=== PATIENT | male | born 1960 | race African-American/Black ===

== ENCOUNTER 2018-02-17 11:13 | Emergency (ER) | payer MEDICAID ==
[~2018-02-17] VITALS: Ht 175.3 cm; Wt 61.0 kg
[~2018-02-17 11:13] MED LIST: HYDR-519; METH500T6
[2018-02-17 11:25] VITALS: BP 100/71
== END 2018-02-17 13:30 | disposition left against medical advice (07) ==
LOC: ER 11:13
DX: R04.2 Hemoptysis (principal); F17.200 Nicotine dependence, unspecified, uncomplicated; Z86.11 Personal history of tuberculosis
CPT/HCPCS: 99281

== ENCOUNTER 2019-09-07 09:30 | Emergency (ER) | payer MEDICAID ==
[~2019-09-07] VITALS: Ht 172.7 cm; Wt 55.0 kg
[2019-09-07 09:45] VITALS: BP 117/79
[2019-09-07] MEDS ORDERED: KETOROLAC 60MG/2ML VIAL IM ONE (11:00)
[2019-09-07] MEDS ORDERED: DIAZEPAM 5 MG TABLET PO ONE (11:00)
== END 2019-09-07 12:23 | disposition home or self-care (01) ==
LOC: ER 09:52
DX: M54.5 Low back pain (principal); I10 Essential (primary) hypertension; Z79.899 Other long term (current) drug therapy
CPT/HCPCS: 72100; 72125; 96372; 99284; J1885

== ENCOUNTER 2023-04-01 12:24 | Emergency (ER) | payer MEDICAID ==
[~2023-04-01] VITALS: Ht 177.8 cm; Wt 61.0 kg
[~2023-04-01 12:24] MED LIST changes: +METH-773; -METH500T6
[2023-04-01 12:56] VITALS: BP 111/73; PULSE 78; RESP 16; TEMP 98.4; O2SAT 100
[2023-04-01] MEDS ORDERED: NAPR-681 PO (13:22)
[2023-04-01] MEDS ORDERED: TRAM50TA3 MT (13:22)
== END 2023-04-01 14:04 | disposition home or self-care (01) ==
LOC: ER 12:24
DX: S39.012A Strain of muscle, fascia and tendon of lower back, initial encounter (principal); V49.40XA Driver injured in collision with unspecified motor vehicles in traffic accident, initial encounter; Y93.89 Activity, other specified; Y92.89 Other specified places as the place of occurrence of the external cause; Y99.8 Other external cause status
CPT/HCPCS: 99283

== ENCOUNTER 2024-07-15 13:06 | Emergency (ER) | payer MEDICARE, MEDICAID ==
[~2024-07-15] VITALS: Ht 172.7 cm; Wt 60.0 kg
[~2024-07-15 13:06] MED LIST changes: +NAPR-681 PO; +TRAM50TA3 MT
[2024-07-15 13:19] VITALS: TEMP 36.6; O2SAT 100
[2024-07-15] MEDS ORDERED: IBUP-2030 MT (15:19)
[2024-07-15] MEDS ORDERED: TOPUD PO (15:19)
[2024-07-15 15:40] VITALS: BP 135/82; PULSE 60; RESP 16; O2SAT 95
== END 2024-07-15 15:42 | disposition home or self-care (01) ==
LOC: ER 13:06
DX: G89.29 Other chronic pain (principal); M54.50 Low back pain, unspecified; M54.2 Cervicalgia; F17.200 Nicotine dependence, unspecified, uncomplicated; Z79.899 Other long term (current) drug therapy; Z98.890 Other specified postprocedural states
CPT/HCPCS: 99282